=== PATIENT | female | born 1965 | race Caucasian/White ===

== ENCOUNTER 2017-06-07 21:27 | Emergency (ER) | payer OTHER ==
[2017-06-07 21:47] VITALS: BP 127/81
--- NOTE | 2017-06-07 22:40 | UC ---
Skin Complaint HPI - HPI Summary HPI Summary: Patient presents concerned about increasing redness and pain in left knee. Patient had a pain patch given to her by a local livestock breeder to help with left knee pain from a presumed ligament injury. Patch was on medial left knee for about 2 days and removed 6 days ago. Patient noticed redness and irritation at the site of the patch which developed into an expanding erythematous area with blistering and clear drainage. Was seen this morning by her PCP at [facility] and treated with Keflex for cellulitis. She has taken 3 doses today and comes in concerned about level of pain and expanding erythema. Patient denies fever. - History of Current Complaint Chief Complaint: UCLowerExtremity Time Seen by Provider: 06/07/17 22:08 Stated Complaint: CELLULITIS RECHECK Hx Obtained From: Patient Hx Last Menstrual Period: 10/30/11 Onset/Duration: Gradual Onset, Lasting Days, Still Present Timing: Constant Onset Severity: Moderate Current Severity: Moderate Pain Intensity: 5 Pain Scale Used: 0-10 Numeric Location: Discrete - Medial left knee Character: Pain, Redness Aggravating Factor(s): Touch Alleviating Factor(s): Nothing Associated Signs & Symptoms: Positive: Drainage, Tenderness, Red Streaks. Negative: Nausea, Fever, Chills - Allergy/Home Medications Allergies/Adverse Reactions: Allergies Allergy/AdvReac Type Severity Reaction Status Date / Time No Known Allergies Allergy Verified 06/07/17 21:37 Home Medications: Home Medications Cephalexin CAP* [Keflex CAP*] 500 mg PO QID 06/07/17 [History Confirmed 06/07/17 ] Review of Systems Constitutional: Negative Skin: Rash, Other - Erythema and blistering left medial knee Respiratory: Negative Cardiovascular: Negative Gastrointestinal: Negative Musculoskeletal: Arthralgia, Edema All Other Systems Reviewed And Are Negative: Yes PMH/Surg Hx/FS Hx/Imm Hx Previously Healthy: Yes - Surgical History Surgical History: Yes Surgery Procedure, Year, and Place: c section 1994 - Family History Known Family History: Positive: Hypertension - Social History Alcohol Use: None Substance Use Type: None Smoking Status (MU): Never Smoked Tobacco Physical Exam Triage Information Reviewed: Yes Appearance: Well-Appearing, No Pain Distress, Well-Nourished Vital Signs: Initial Vital Signs Temp 98.6 F 06/07/17 21:38 Pulse 77 06/07/17 21:38 Resp 18 06/07/17 21:38 BP 127/81 06/07/17 21:38 Pulse Ox 100 06/07/17 21:38 Vital Signs Reviewed: Yes Eyes: Positive: Conjunctiva Clear ENT: Positive: Hearing grossly normal Neck: Positive: Supple Respiratory: Positive: No respiratory distress, No accessory muscle use Cardiovascular: Positive: Pulses Normal Abdomen Description: Positive: Soft Musculoskeletal: Positive: ROM Intact Neurological: Positive: Alert Psychological: Positive: Age Appropriate Behavior Skin: Positive: rashes - Approx 20cm x 17cm area of erythema left medial knee with central rectangular area of indurated hyperpigmentation c/w size of topical patch with scattered oozing blisters Course/Dx - Course Course Of Treatment: Infected area was cleansed and dressed with Bactroban and nonstick bandage. Patient advised to continue antibiotics as prescribed. Seek follow-up if not improving after 48 hours on antibiotics. - Diagnoses Provider Diagnoses: 1. CELLULITIS LEFT KNEE. 2. ALLERGIC DERMATITIS LEFT KNEE Discharge - Sign-Out/Discharge Documenting (check all that apply): Discharge - Discharge Plan Condition: Stable Disposition: HOME Prescriptions: Mupirocin 2% OINT* [Bactroban 2 % Oint*] 1 applic TOPICAL TID #1 tube Patient Education Materials: Cellulitis (ED), Dermatitis (ED) Referrals: Abdi Holcomb MD [Primary Care Provider] - If Needed Additional Instructions: Continue the Keflex as prescribed. Cleanse the affected area daily, cover with thin layer of Bactroban ointment and a nonstick bandage. Change dressings once daily and as needed if they become soiled, wet or soaked through. Ibuprofen for discomfort. Recommend daily antihistamine as well to cover for allergic dermatitis. Antibiotics may take up to 48 hours to become efficacious. During this initial timeframe it is not uncommon to see some expanding redness. After 48 hours you should begin to notice improvement in your symptoms. If you are not improving as expected follow-up with your regular doctor. If you develop worsening swelling, redness, warmth in your knee with increasing pain and fevers /chills or any other concerning symptoms go to [place] [facility] [place]. - Billing Disposition and Condition Condition: STABLE Disposition: HOME
[2017-06-07] MEDS ORDERED: Mupirocin 2% OINT* TUBE TOPICAL ONE ×2 (22:45→22:50)
[2017-06-08] MEDS ORDERED: Mupirocin 2% OINT* TUBE TOPICAL SCH (09:00)
== END 2017-06-07 23:18 | disposition home or self-care (01) ==
LOC: UCEAST 21:27
DX: L03.116 Cellulitis of left lower limb (principal); L23.9 Allergic contact dermatitis, unspecified cause
CPT/HCPCS: 99213; G0463

== ENCOUNTER 2017-06-08 23:34 | Emergency (ER) | payer OTHER ==
[2017-06-09 00:45] LABS: Hematocrit 47 % (35-47); Mean Corpuscular HGB Conc 34 g/dl (31-36); Mean Corpuscular Hemoglobin 32 pg (27-31); Mean Corpuscular Volume 94 fL (80-97); Mean Platelet Volume 10.7 um3 (7.4-10.4); Platelet Count 208 10^3/ul (150-450); Red Blood Count 5.02 10^6/ul (4.0-5.4); Red Cell Distribution Width 13 % (10.5-15); White Blood Count 10.1 10^3/ul (3.5-10.8)
[2017-06-09] MEDS ORDERED: diPHENhydraMINE IV* 50 MG/ML 1 ml VIAL (BENADRYL) IV ONE (00:59)
[2017-06-09 01:01] LABS: EGFR Non-African American 87.9 (>60)
[2017-06-09] MEDS ORDERED: methylPREDNISolone 125 MG* 2 ML VIAL IV ONE (01:09)
[2017-06-09] MEDS ORDERED: Clindamycin 900 MG IVPREMIX(* 900 MG/50 ML SDV IV ONE (01:09)
[2017-06-09] MEDS ORDERED: Famotidine IV* 10 MG/ML 2 ML (20 mg) IV SLOW PU ONE (01:09)
[2017-06-09] MEDS ORDERED: NS 0.9% 1000 ML* 1,000 ML IV ONE (01:10)
[2017-06-09] MEDS ORDERED: methylPREDNISolone 125 MG* 2 ML VIAL ONE (01:10)
[2017-06-09] MEDS ORDERED: Famotidine IV* 10 MG/ML 2 ML (20 mg) ONE (01:10)
--- NOTE | 2017-06-09 01:17 | ED ---
Skin Complaint - HPI Summary HPI Summary: Complains of skin reaction to medication patch placed on the left knee by demolitionist 1.5 weeks ago, with expanding redness and warmth to left knee and decreased range of motion since. Patient seen at urgent care 2 days ago placed on Keflex, but redness and warmth has expanded inferiorly, superiorly, and medially. Patient also now has pruritic rash on back, neck, bilateral nipples. Patient has not been taking an antihistamine as she does not like to take medications. Patient does not get regular checkups with PCP. Denies fever, cough, sore throat, CP, SOB, perioral swelling, excised precisely, abdomen pain , change in urinary or BM. Denies any medical history. - History of Current Complaint Hx Obtained From: Patient Hx Last Menstrual Period: 10/30/11 Onset/Duration: Started Days Ago Skin Exposure Onset/Duration: Days Ago Timing: Constant Onset Severity: Moderate Current Severity: Moderate Pain Intensity: 5 Pain Scale Used: 0-10 Numeric Skin Location: Discrete, Leg Aggravating Symptom(s): Nothing Alleviating Symptom(s): Nothing Associated Signs & Symptoms: Rash <Nathanael Lucas - Last Filed: 06/09/17 03:22> <Jose Bailon - Last Filed: 06/09/17 06:54> - History of Current Complaint Chief Complaint: EDRashSkinAbscess Time Seen by Provider: 06/09/17 00:19 Stated Complaint: ALLERGIC REACTION - Allergy/Home Medications Allergies/Adverse Reactions: Allergies Allergy/AdvReac Type Severity Reaction Status Date / Time cephalexin [From Keflex] Allergy Hives Verified 06/09/17 03:18 milk Allergy Rash Verified 06/09/17 01:26 PMH/Surg Hx/FS Hx/Imm Hx - Surgical History Surgery Procedure, Year, and Place: c section 1994 Infectious Disease History: No Infectious Disease History: Denies: Traveled Outside the [place] in Last 30 Days - Family History Known Family History: Positive: Hypertension - Social History Alcohol Use: None Substance Use Type: Reports: None Smoking Status (MU): Never Smoked Tobacco <Nathanael Lucas - Last Filed: 06/09/17 03:22> Review of Systems Constitutional: Negative Eyes: Negative ENT: Negative Cardiovascular: Negative Respiratory: Negative Gastrointestinal: Negative Genitourinary: Negative Musculoskeletal: Negative Positive: Rash Neurological: Negative Psychological: Normal All Other Systems Reviewed And Are Negative: Yes <LanceNathanael - Last Filed: 06/09/17 03:22> Physical Exam - Summary Physical Exam Summary: Very clearly delineated area of reaction to initial patch. Additional erythema and warmth beyond borders of initial patch. Patient claims pain with flexion of left knee. Mild swelling of left knee. Area is mildly tender to palpation. Erythema is non-circumferential around left knee. Maculopapular rash to back, neck, bilateral nipples. No perioral swelling. Vital Signs On Initial Exam: Initial Vitals Temp Pulse Resp BP Pulse Ox 98.4 F 96 18 129/86 100 06/08/17 23:37 06/08/17 23:37 06/08/17 23:37 06/08/17 23:37 06/08/17 23:37 Appearance: Positive: Well-Appearing Skin: Positive: Warm Head/Face: Positive: Normal Head/Face Inspection Eyes: Positive: Normal ENT: Positive: Normal ENT inspection Neck: Positive: Supple Respiratory/Lung Sounds: Positive: Clear to Auscultation Cardiovascular: Positive: Normal Abdomen Description: Positive: Nontender Musculoskeletal: Positive: Normal Neurological: Positive: Normal Psychiatric: Positive: Normal AVPU Assessment: Alert - [place] Coma Scale Best Eye Response: 4 - Spontaneous Best Motor Response: 6 - Obeys Commands Best Verbal Response: 5 - Oriented Coma Scale Total: 15 <LanceNathanael - Last Filed: 06/09/17 03:22> Vital Signs On Initial Exam: Initial Vitals Temp Pulse Resp BP Pulse Ox 98.4 F 96 18 129/86 100 06/08/17 23:37 06/08/17 23:37 06/08/17 23:37 06/08/17 23:37 06/08/17 23:37 <Jose Bailon - Last Filed: 06/09/17 06:54> Diagnostics - Vital Signs Vital Signs Temp Pulse Resp BP Pulse Ox 06/08/17 23:37 98.4 F 96 18 129/86 100 - Laboratory Lab Results: Lab Results 06/09/17 06/09/17 06/09/17 Range/Units 00:33 00:33 00:33 WBC 10.1 (3.5-10.8) 10^3/ul RBC 5.02 (4.0-5.4) 10^6/ul Hgb 16.0 (12.0-16.0) g/dl Hct 47 (35-47) % MCV 94 (80-97) fL MCH 32 H (27-31) pg MCHC 34 (31-36) g/dl RDW 13 (10.5-15) % Plt Count 208 (150-450) 10^3/ul MPV 10.7 H (7.4-10.4) um3 Neut % (Auto) Pending Lymph % (Auto) Pending Emmet % (Auto) Pending Eos % (Auto) Pending Baso % (Auto) Pending Absolute Neuts (auto) Pending Absolute Lymphs (auto) Pending Absolute Monos (auto) Pending Absolute Eos (auto) Pending Absolute Basos (auto) Pending Absolute Nucleated RBC Pending Nucleated RBC % Pending ESR Pending Sodium 139 (139-145) mmol/L Potassium 3.7 (3.5-5.0) mmol/L Chloride 102 (101-111) mmol/L Carbon Dioxide 29 (22-32) mmol/L Anion Gap 8 (2-11) mmol/L BUN 10 (6-24) mg/dL Creatinine 0.70 (0.51-0.95) mg/dL Est GFR ( Amer) 113.0 (>60) Est GFR (Non-Af Amer) 87.9 (>60) BUN/Creatinine Ratio 14.3 (8-20) Glucose 101 H (70-100) mg/dL Lactic Acid 0.9 (0.5-2.0) mmol/L Calcium 10.0 (8.6-10.3) mg/dL Total Bilirubin 0.40 (0.2-1.0) mg/dL AST 19 (13-39) U/L ALT 15 (7-52) U/L Alkaline Phosphatase 70 (34-104) U/L C-Reactive Protein 2.04 (< 5.00) mg/L Total Protein 7.8 (6.4-8.9) g/dL Albumin 4.7 (3.2-5.2) g/dL Globulin 3.1 (2-4) g/dL Albumin/Globulin Ratio 1.5 (1-3) Result Diagrams: 06/09/17 00:33 06/09/17 00:33 Lab Statement: Any lab studies that have been ordered have been reviewed, and results considered in the medical decision making process. <Nathanael Lucas - Last Filed: 06/09/17 03:22> - Vital Signs Vital Signs Temp Pulse Resp BP Pulse Ox 06/09/17 03:17 98.4 F 77 16 142/89 99 06/09/17 02:29 77 142/89 98 06/09/17 02:00 82 100 06/09/17 01:29 80 155/86 100 06/09/17 01:26 80 100 06/08/17 23:37 98.4 F 96 18 129/86 100 - Laboratory Lab Results: Lab Results 06/09/17 06/09/17 06/09/17 Range/Units 00:33 00:33 00:33 WBC 10.1 (3.5-10.8) 10^3/ul RBC 5.02 (4.0-5.4) 10^6/ul Hgb 16.0 (12.0-16.0) g/dl Hct 47 (35-47) % MCV 94 (80-97) fL MCH 32 H (27-31) pg MCHC 34 (31-36) g/dl RDW 13 (10.5-15) % Plt Count 208 (150-450) 10^3/ul MPV 10.7 H (7.4-10.4) um3 Neut % (Auto) 67.3 (38-83) % Lymph % (Auto) 21.7 L (25-47) % Emmet % (Auto) 4.7 (0-7) % Eos % (Auto) 5.7 (0-6) % Baso % (Auto) 0.6 (0-2) % Absolute Neuts (auto) 6.8 (1.5-7.7) 10^3/ul Absolute Lymphs (auto) 2.2 (1.0-4.8) 10^3/ul Absolute Monos (auto) 0.5 (0-0.8) 10^3/ul Absolute Eos (auto) 0.6 (0-0.6) 10^3/ul Absolute Basos (auto) 0.1 (0-0.2) 10^3/ul Absolute Nucleated RBC 0 10^3/ul Nucleated RBC % 0.1 ESR 10 (0-30) mm/Hr Sodium 139 (139-145) mmol/L Potassium 3.7 (3.5-5.0) mmol/L Chloride 102 (101-111) mmol/L Carbon Dioxide 29 (22-32) mmol/L Anion Gap 8 (2-11) mmol/L BUN 10 (6-24) mg/dL Creatinine 0.70 (0.51-0.95) mg/dL Est GFR ( Amer) 113.0 (>60) Est GFR (Non-Af Amer) 87.9 (>60) BUN/Creatinine Ratio 14.3 (8-20) Glucose 101 H (70-100) mg/dL Lactic Acid 0.9 (0.5-2.0) mmol/L Calcium 10.0 (8.6-10.3) mg/dL Total Bilirubin 0.40 (0.2-1.0) mg/dL AST 19 (13-39) U/L ALT 15 (7-52) U/L Alkaline Phosphatase 70 (34-104) U/L C-Reactive Protein 2.04 (< 5.00) mg/L Total Protein 7.8 (6.4-8.9) g/dL Albumin 4.7 (3.2-5.2) g/dL Globulin 3.1 (2-4) g/dL Albumin/Globulin Ratio 1.5 (1-3) Result Diagrams: 06/09/17 00:33 06/09/17 00:33 Lab Statement: Any lab studies that have been ordered have been reviewed, and results considered in the medical decision making process. <Jose Bailon - Last Filed: 06/09/17 06:54> Re-Evaluation - Re-Evaluation 1 Re-Evaluation Time: 01:54 Comment: Vital signs stable. Labs unremarkable. Discussed patient with hospitalist. Hospitalist stated he could admit for observation, but felt that home course of Levaquin would be better. Patient herself opted for discharge home with stronger by mouth antibiotics, and by mouth steroids. Concerning symptoms were explained to the patient and she was advised to come back if any such symptoms appeared. 2 Re-Evaluation Time: 03:04 Change: Improved Comment: Erythema and warmth to the left knee joint significantly reduced by medications here in ED. Allergic reaction indicated versus cellulitis <Nathanael Lucas - Last Filed: 06/09/17 03:22> Course/Dx <Nathanael Lucas - Last Filed: 06/09/17 03:22> - Course Course Of Treatment: I supervised the care of the PA and performed a hx/PE on this patient. Hx: Patch applied to the L knee area by natriopath and increased redness "burn" sx to area. Seen in urgent care yesterday and outlined. Today with increased redness outside area and more widespread rash. PE: Box shaped rash R medial knee with erythema and warmth surrounding it. Weeping/bulloused central wound. Also with splotchy erythema to chest and back and and L neck. Plan: Cellulitis vs allergic. Clearly allergic at originial site. On keflex without improvement. Steroids, pepcid and benadryl greatly reduced rash, including what appeared as possibly cellulitic. This is apparently all allergic. D/W hospitalist who evaluated and agrees at pt d/c. Will use topical steroid, oral steroid, H1/H2 blockers. F/U PMD. - Differential Diagnoses - Skin Complaint Differential Diagnoses: Allergic Reaction, Cellulitis, Contact Dermatitis <Jose Bailon - Last Filed: 06/09/17 06:54> - Diagnoses Provider Diagnoses: Allergic reaction, Allergic contact dermatitis due to adhesives Discharge - Sign-Out/Discharge Documenting (check all that apply): Discharge - Billing Disposition and Condition Condition: STABLE [place] [place]Nathanael Lucas - Last Filed: 06/09/17 03:22> - Billing Disposition and Condition Condition: STABLE Disposition: HOME <Jose Bailon - Last Filed: 06/09/17 06:54> - Discharge Plan Condition: Stable Disposition: HOME Prescriptions: Famotidine TAB* [Pepcid 20 MG TAB*] 20 mg PO DAILY #10 tab predniSONE [Prednisone] 40 mg PO DAILY 5 Days #5 tablet Triamcinolone 0.5% OINT * 1 applic TOPICAL TID #1 tube Patient Education Materials: General Allergic Reaction (ED) Referrals: Abdi Holcomb MD [Primary Care Provider] - Additional Instructions: Take benadryl 50mg by mouth as needed in addition to prescribed meds. Follow-up with primary care. Return to the ED for any new or worsening symptoms
[2017-06-09 01:26] LABS: ABS Basophils 0.1 10^3/ul (0-0.2); ABS Eosinophils 0.6 10^3/ul (0-0.6); ABS Lymphocytes 2.2 10^3/ul (1.0-4.8); ABS Monocytes 0.5 10^3/ul (0-0.8); ABS Neutrophils 6.8 10^3/ul (1.5-7.7); ABS Nucleated RBC 0 10^3/ul; Eosinophil % 5.7 % (0-6); Lymphocyte % 21.7 % (25-47); Nucleated Red Blood Cells % 0.1
[2017-06-09 02:35] VITALS: BP 142/89
== END 2017-06-09 03:19 | disposition home or self-care (01) ==
LOC: ED 23:34
DX: T78.40XA Allergy, unspecified, initial encounter (principal); L25.9 Unspecified contact dermatitis, unspecified cause; X58.XXXA Exposure to other specified factors, initial encounter
CPT/HCPCS: 36415; 80053; 83605; 85025; 85652; 86140; 87040; 96374; 96375; 99283; J1200; J2930

== ENCOUNTER 2017-06-22 19:51 | Emergency (ER) | payer OTHER ==
[2017-06-22 20:03] VITALS: BP 135/87
[2017-06-22] MEDS ORDERED: predniSONE TAB* 20 MG PO ONE (20:42)
--- NOTE | 2017-06-22 20:50 | UC ---
Skin Complaint HPI - HPI Summary HPI Summary: 52 y/o female presents to the urgent care c/o recurrence of a rash in her LF knee since last night. Pt reports about 3 weeks she had a knee sprain and she was placed a patch for pain where she goes for acupuncture. The next day she developed a skin infection from that patch and she went to her PCP and was Rx Keflex PO which she then developed an allergic reaction in all her leg. She went to the ER 06/09/2017 and was given IV ABX, Benadryl and steroids. She was d /c home w/ Prednisone PO, pepcid PO and triamcinolone cream. Symptoms resolved when she finished her Tx. Last night she went out dancing and this morning she noticed the rash again around her left knee and an itchy sensation and swelling of her labia majora which was the same sensation at the begining of symptoms form the previous allergic reaction. Pt request Prednisone since she doen't want the symptoms to worsen like last time. Pt has only taken Bendaryl PO to alleviate symptoms. Pt denies SOB, difficulty swallowing, chest pain, abdominal pain, N/V/D. - History of Current Complaint Chief Complaint: UCLowerExtremity Time Seen by Provider: 06/22/17 20:23 Stated Complaint: SWELLING ON KNEE Hx Obtained From: Patient Hx Last Menstrual Period: 10/30/11 ?: No - Menopausal Onset/Duration: Gradual Onset, Lasting Days - 1 day, Still Present, Worse Since - this morning Skin Exposure Onset/Duration: Weeks Ago - 3 weeks ago Timing: Constant Onset Severity: Mild Current Severity: Mild Pain Intensity: 2 Pain Scale Used: 0-10 Numeric Location: Discrete - left knee Character: Swelling, Pruritus, Redness Aggravating Factor(s): Touch Alleviating Factor(s): OTC Meds Associated Signs & Symptoms: Positive: Rash. Negative: Difficulty Breathing, Fever, Chills, Throat Tightening, Drainage, Tenderness Related History: Possible Reaction to: Environmental Exposure Similar Episode/Dx as: allergic reaction - Allergy/Home Medications Allergies/Adverse Reactions: Allergies Allergy/AdvReac Type Severity Reaction Status Date / Time cephalexin [From Keflex] Allergy Hives Verified 06/22/17 20:02 milk Allergy Rash Verified 06/22/17 20:02 Review of Systems Constitutional: Negative Skin: Rash - medail side of left knee, labia majora itchiness and mild swelling Eyes: Negative ENT: Negative Respiratory: Negative Cardiovascular: Negative Gastrointestinal: Negative Genitourinary: Negative Motor: Negative Neurovascular: Negative Musculoskeletal: Negative Neurological: Negative Psychological: Negative Is Patient Immunocompromised?: No All Other Systems Reviewed And Are Negative: Yes PMH/Surg Hx/FS Hx/Imm Hx Previously Healthy: Yes - Pt denies PMHX - Surgical History Surgical History: Yes Surgery Procedure, Year, and Place: c section 1994 - Family History Known Family History: Positive: Cardiac Disease, Hypertension Family History: Stroke - Social History Occupation: Employed Full-time Lives: With Family Alcohol Use: None Substance Use Type: None Smoking Status (MU): Never Smoked Tobacco Physical Exam - Summary Physical Exam Summary: Vital Signs Reviewed: Yes General: well developed, well nourished female sitting in the examining table w/ o any apparent distress. Eyes: Positive: Conjunctiva Clear - PERRLA, EOMI ENT: Positive: Normal ENT inspection, Hearing grossly normal, Pharynx normal, TMs normal Neck: Positive: Supple, Nontender, No Lymphadenopathy Respiratory: Positive: Chest nontender, Lungs clear, Normal breath sounds Cardiovascular: Positive: RRR, No Murmur, Pulses Normal Abdomen Description: Positive: Nontender, No Organomegaly, Soft. Negative: CVA Tenderness (R), CVA Tenderness (L) Bowel Sounds: Positive: Present Musculoskeletal: Positive: Strength Intact, ROM Intact, No Edema Neurological Exam: Normal Psychological Exam: Normal Skin: Positive: rashes - Medial aspect of left knee w/ maculopapular erythematous eruption, square in shape about 3.5cm and 2.0cm in size, mild swelling and non tender to palpation. FROM of left knee. Pt declined examination of genital area. Triage Information Reviewed: Yes Vital Signs: Initial Vital Signs Temp 99.0 F 06/22/17 19:54 Pulse 94 06/22/17 19:54 Resp 18 06/22/17 19:54 BP 135/87 06/22/17 19:54 Pulse Ox 99 06/22/17 19:54 Course/Dx - Course Course Of Treatment: 52 y/o female presents to the urgent care c/o recurrence of a rash in her LF knee since last night. Pt reports about 3 weeks she had a knee sprain and she was placed a patch for pain where she goes for acupuncture. The next day she developed a skin infection from that patch and she went to her PCP and was Rx Keflex PO which she then developed an allergic reaction in all her leg. She went to the ER 06/09/2017 and was given IV ABX, Benadryl and steroids. She was d/c home w/ Prednisone PO, pepcid PO and triamcinolone cream. Symptoms resolved when she finished her Tx. Last night she went out dancing and this morning she noticed the rash again around her left knee and an itchy sensation and swelling of her labia majora which was the same sensation at the begining of symptoms form the previous allergic reaction. Pt request Prednisone since she doen't want the symptoms to worsen like last time. Pt has only taken Bendaryl PO to alleviate symptoms. Pt denies SOB, difficulty swallowing, chest pain, abdominal pain, N/V/D. Hx obtained. Pt w/ a left medial aspect w/ an erythematous eruption in the shape of a square, w/ mild swelling on examination. Pt given Prednisone PO at the clinic and Rx similar medication adn triamcinolone cream. Advised to continue w/ Bendaryl PO. Pt advised if rash worsens despite medications and she develops SOB to immediately go to the ER for further treatment. Pt understood and agreed with plan of care. - Differential Diagnoses - Skin Complaint Differential Diagnoses: Abscess, Allergic Reaction, Cellulitis, Contact Dermatitis, Local Allergic Reaction, Urticaria - Diagnoses Provider Diagnoses: 1- Letf knee local allergic reaction Discharge - Sign-Out/Discharge Documenting (check all that apply): Discharge/Admit/Transfer - D/C home - Discharge Plan Condition: Stable Disposition: HOME Prescriptions: predniSONE TAB* [Deltasone TAB*] 20 mg PO DAILY #8 tab Triamcinolone 0.1% CREAM(NF) [Kenalog Cream 0.1%(NF)] 1 applic TOPICAL BID #1 tube Patient Education Materials: Acute Rash (ED) Referrals: Abdi Holcomb MD [Primary Care Provider] - 3 Days Additional Instructions: 1-Please apply the Triamcinolone BID x 7 days that was Rx at the ED last time 2-Take Prednisone PO as directed as directed , first dose given at the clinic tonight.. 3- Continue taking Benadryl PO to alleviate itchiness 3-If symptoms do not improve or worsen please f/u with your PCP or return to the urgent care in 2-3 days for further evaluation and treatment. - Billing Disposition and Condition Condition: STABLE Disposition: HOME
== END 2017-06-22 20:58 | disposition home or self-care (01) ==
LOC: UCEAST 19:51
DX: R21 Rash and other nonspecific skin eruption (principal); M79.89 Other specified soft tissue disorders; Z88.1 Allergy status to other antibiotic agents
CPT/HCPCS: 99212; G0463; J7512